=== PATIENT | female | born 1980 | race Caucasian/White ===

== ENCOUNTER 2017-01-09 19:15 | Emergency (ER) | payer MEDICAID ==
[~2017-01-09] VITALS: Ht 157.5 cm; Wt 76.2 kg
[2017-01-09 19:38] VITALS: BP 141/81
== END 2017-01-09 22:01 | disposition home or self-care (01) ==
LOC: ED 19:15
DX: S66.912A Strain of unspecified muscle, fascia and tendon at wrist and hand level, left hand, initial encounter (principal); X50.0XXA Overexertion from strenuous movement or load, initial encounter; Y93.89 Activity, other specified; Y99.8 Other external cause status; Y92.89 Other specified places as the place of occurrence of the external cause
CPT/HCPCS: A4570

== ENCOUNTER 2017-07-11 18:38 | Emergency (ER) | payer MEDICAID ==
[~2017-07-11] VITALS: Ht 160 cm; Wt 78.0 kg
[2017-07-11 19:09] VITALS: Ht 160 cm; Wt 78.0 kg
[2017-07-11 21:41] VITALS: BP 122/76
== END 2017-07-11 21:41 | disposition home or self-care (01) ==
LOC: ED 18:38
DX: M54.12 Radiculopathy, cervical region (principal)